=== PATIENT | female | born 1990 | race Caucasian/White ===

== ENCOUNTER 2016-05-22 11:45 | Inpatient (IN) | payer OTHER ==
--- NOTE | 2016-05-22 12:40 | HP ---
Past Medical History - Admission Chief Complaint: labor History of Present Illness: 26 yo @ 39 2/7 wks by LMP consistent with first trimester ultrasound, EDC complicated by: 1. Transfer of care at 11 wks Patient reports contractions began at 11 PM, they continued overnight and increased in intensity and frequency at approximately 10:30 AM. She denies leakage of fluid or vaginal bleeding She reports movement. History Source: Patient - Past Medical History Cardiovascular: No: HTN Pulmonary: No: Asthma ...: 1 ...Para: 0 ...EDC by Dates: 12/02/16 Heme/Onc: No: Anemia - Past Surgical History Hx Myomectomy: No Hx Transabdominal Cerclage: No Additional Surgical History: Adenoids Home Medications - Allergies Allergies/Adverse Reactions: Allergies Allergy/AdvReac Type Severity Reaction Status Date / Time No Known Allergies Allergy Verified 05/22/16 12:36 Family Disease History - Family Disease History Family History: Denies Review of Systems - Review of Systems Constitutional: reports: No Symptoms Neck: reports: No Symptoms Cardiovascular: reports: No Symptoms Respiratory: reports: No Symptoms Gastrointestinal: reports: No Symptoms Genitourinary: reports: No Symptoms Neurological: reports: No Symptoms Psychiatric: reports: No Symptoms Physical Exam - Maternity Constitutional: Yes: Well Nourished, No Distress, Calm Cardiovascular: Yes: Regular Rate and Rhythm Lungs: Clear to auscultation - Abdominal Exam/OB Number of Fetuses: Single Presentation: Vertex Contractions: Yes Regularity: Regular Intensity: Mod/Strong Heart Rate (range): 155 Category: I - Vaginal Exam/OB Vaginal Bleediing: No Speculum Exam: No Amniotic Membrane Status: Intact - Labs Lab Results: PNL: O positive, HBS Ag negative, RPR NR, Quantiferon negative, Hg Patrizia AA; Rubella Immune; Varicella Immune; Lead negative; CF negative; GBS negative unable to print labs or records Hemorrhage Risk Assessment - Risk Factors Medium Risk Factors: Yes: None High Risk Factors: Yes: None Risk Score: 1 Risk Level: Medium Risk Assessment/Plan 26 yo @ 39 wks, active labor 1. Admit to L&D 2. Routine labs and HIV collected and sent 3. GBS negative 4. Desires IV medication for pain control 5. Continue expectant management, anticipate vaginal delivery
[2016-05-22] MEDS ORDERED: PROMETHAZINE HCL 25 MG/1 ML VIAL IVPUSH ONE (12:44)
[2016-05-22] MEDS ORDERED: BUTORPHANOL TARTRATE 1 MG/ML VIAL IVPUSH ONE (12:44)
[2016-05-22 12:48] LABS: BASOPHIL 0.2 % (0-2.0); EOSINOPHIL 0.3 % (0-4.5); MCH 32.1 pg (25.7-33.7); MEAN CELL VOLUME 91.7 fl (80-96); MEAN PLT VOLUME 7.5 fl (7.5-11.1); NEUTROPHILS 83.4 % (42.8-82.8); PLATELET COUNT 198 K/MM3 (134-434); RDW 15.3 % (11.6-15.6); WHITE BLOOD COUNT 10.8 K/mm3 (4.0-10.0)
[2016-05-22 12:56] VITALS: BMI 32.5
[2016-05-22 13:04] LABS: INR 0.92 (0.82-1.09); PROTHROMBIN TIME (PATIENT) 10.1 SEC (9.98-11.88)
[2016-05-22 13:06] LABS: ACTIVATED PTT 27.4 SECONDS (26.9-34.4)
[2016-05-22 13:09] LABS: CALCIUM 8.2 mg/dL (8.5-10.1); CREATININE 0.7 mg/dL (0.55-1.02)
[2016-05-22] MEDS ORDERED: BENZOCAINE 20% 57 GM BOTTLE TP PRN (15:23)
[2016-05-22] MEDS ORDERED: METHYLERGONOVINE MALEATE 0.2 MG/1 ML AMP IM PRN (15:23)
[2016-05-22] MEDS ORDERED: METHYLERGONOVINE MALEATE 0.2 MG/1 ML AMP IM ONE (15:23)
[2016-05-22] MEDS ORDERED: BISACODYL 10 MG SUPP.RECT RC PRN (15:23)
[2016-05-22] MEDS ORDERED: BENZOCAINE 28 GM HEMORRHOIDAL OINTMENT TP PRN (15:23)
[2016-05-22] MEDS ORDERED: oxyCODONE HCL 5 MG TABLET PO PRN (15:23)
[2016-05-22] MEDS ORDERED: WITCH HAZEL 50% (TUCKS) 40 PAD/JAR PAD TP PRN (15:23)
--- NOTE | 2016-05-22 15:28 | PN ---
Delivery - Delivery Vaginal Delivery: No Problems Type of Anesthesia: Local Episiotomy/Laceration: Midline, 1st degree EBL (cc): 600 (mild uterine atony) Delivery, Single - Stages of Labor Date 1st Stage Initiatied: 05/22/16 Time 1st Stage Initiated: 10:30 Time 2nd Stage Initiated: 13:50 Time of Delivery: 14:54 Time Placenta Delivered: 14:57 Placenta: Yes: Spontaneous - Condition of Infant Gender: Female Position: Left, OA - 1 Minute Total Score: 9 5 Minutes Total Score: 10 - [place] Feeding Plan Initial Plan: Exclusive throughout hospitalization Remarks - Remarks Remarks: Patient progressed to fully dilated and at 1350 via delivered a viable female infant in LEODAN position, APGARs 9,10. Weight and length unknown at this time. Head delivered spontaneously followed by shoulders and body without difficulty. Infant with spontaneous cry and placed on mother's abdomen. Nose and mouth was bulb suctioned. Cord was clamped and cut. Perineum and vagina examined, a first degree perineal and R paraurethral laceration was noted and repaired in the usual fashion. Placenta was delivered spontaneously and intact. 20 units of pitocin in 1 L IVF was given. Uterine atony was noted, resolved s/p bimanual massage and IM methergine All counts correct x 2. Mother and stable in LDR. EBL 600cc.
[2016-05-22] MEDS ORDERED: D5W-LR W/ 20 UNITS OXYTOCIN 1,000 ML IV SCH (15:30)
[2016-05-22] MEDS ORDERED: TUBERCULIN PPD 5 TU/0.1ML SYRINGE (IN PATIENT USE ONLY) ID ONE (16:00)
[2016-05-22] MEDS: ACETAMINOPHEN 325 MG TABLET (FP) PO PRN (19:54)
[2016-05-22] MEDS: IBUPROFEN 600 MG TABLET (FP) PO PRN (19:56)
[2016-05-23] MEDS: ACETAMINOPHEN 325 MG TABLET (FP) PO PRN ×3 (04:36→20:52)
[2016-05-23] MEDS: IBUPROFEN 600 MG TABLET (FP) PO PRN ×3 (04:39→20:51)
[2016-05-23 07:48] LABS: HIV 1 & 2 AB NEGATIVE; HIV 1 AGp24 NEGATIVE
[2016-05-23 07:53] LABS: BASOPHIL 0.3 % (0-2.0); EOSINOPHIL 0.5 % (0-4.5); MCH 31.9 pg (25.7-33.7); MCHC 34.5 g/dl (32.0-36.0); MEAN CELL VOLUME 92.3 fl (80-96); MEAN PLT VOLUME 7.4 fl (7.5-11.1); NEUTROPHILS 79.4 % (42.8-82.8); PLATELET COUNT 182 K/MM3 (134-434); RDW 15.6 % (11.6-15.6); WHITE BLOOD COUNT 11.7 K/mm3 (4.0-10.0)
[2016-05-23 08:39] LABS: HIV 1 & 2 AB NEGATIVE; HIV 1 AGp24 NEGATIVE
[2016-05-23] MEDS ORDERED: DIPHTH,PERTUSS(ACELL),TET 0.5 ML DISP.SYRIN IM ONE (10:00)
[2016-05-23] MEDS: PRENATAL VITAMINS W/ FOLIC ACID TABLET (FP) PO SCH (10:05)
[2016-05-23] MEDS ORDERED: DOCUSATE SODIUM 100 MG CAPSULE (FP) PO PRN (10:25)
--- NOTE | 2016-05-23 10:25 | PN ---
Post Progress Note - Subjective Subjective: Patient without acute complaints. Reports tolerating oral intake without nausea or vomiting. Ambulating without dizziness. Denies fevers or chills. Pain well controlled with oral pain medication. without difficulty. Passing flatus. Post Day: 1 Type of Delivery: Vital Signs: Vital Signs Temperature 98.5 F 05/23/16 08:56 Pulse Rate 96 H 05/23/16 08:56 Respiratory Rate 20 05/23/16 08:56 Blood Pressure 110/60 05/23/16 08:56 O2 Sat by Pulse Oximetry (%) Breast Exam: Yes: Soft. No: Cracked Nipples Uterus: Yes: Fundus Firm, Fundus below umbilicus Abdomen/GI: Yes: Abdomen soft, Passing flatus, Tolerating PO. No: Abdominal Distention, Tender Lochia: Yes: Serosa Lochia, amount: Small Extremities: Yes: Calves non-tender. No: Edema Perineum: Yes: Laceration Activity: Ambulating - Labs Labs: CBC WBC 11.7 K/mm3 (4.0-10.0) H 05/23/16 06:15 RBC 2.95 M/mm3 (3.60-5.2) L 05/23/16 06:15 Hgb 9.4 GM/dL (10.7-15.3) L D 05/23/16 06:15 Hct 27.2 % (32.4-45.2) L D 05/23/16 06:15 MCV 92.3 fl (80-96) 05/23/16 06:15 MCHC 34.5 g/dl (32.0-36.0) 05/23/16 06:15 RDW 15.6 % (11.6-15.6) 05/23/16 06:15 Plt Count 182 K/MM3 (134-434) 05/23/16 06:15 MPV 7.4 fl (7.5-11.1) L 05/23/16 06:15 Neutrophils % 79.4 % (42.8-82.8) 05/23/16 06:15 Lymphocytes % 13.2 % (8-40) 05/23/16 06:15 Monocytes % 6.6 % (3.8-10.2) 05/23/16 06:15 Eosinophils % 0.5 % (0-4.5) 05/23/16 06:15 Basophils % 0.3 % (0-2.0) 05/23/16 06:15 Assessment/Plan 26 yo PPD # 1 s/p , afebrile, vital signs stable, doing well 1. Continue routine care. 2. AM CBC with mild anemia. will start ferrous sulfate and colace PRN 3. Rh positive status, no rhogam indicated. 4. Continue oral pain medication 5. Anticipate discharge home day #2
[2016-05-23] MEDS: FERROUS SO4 325 MG TABLET (FP) PO SCH (21:00)
[2016-05-23] MEDS ORDERED: SENNOSIDES/DOCUSATE COMBO (SENNA PLUS) TABLET (UD) PO PRN (22:00)
[2016-05-24] MEDS: IBUPROFEN 600 MG TABLET (FP) PO PRN (06:15)
[2016-05-24] MEDS: ACETAMINOPHEN 325 MG TABLET (FP) PO PRN (06:17)
[2016-05-24] MEDS: FERROUS SO4 325 MG TABLET (FP) PO SCH (11:01)
[2016-05-24] MEDS: PRENATAL VITAMINS W/ FOLIC ACID TABLET (FP) PO SCH (11:01)
[2016-05-24 12:11] VITALS: BP 119/68; PULSE 88; TEMP 98
--- NOTE | 2016-05-24 12:57 | DS ---
Physical Exam-CARDIOVASCULAR SONOGRAPHER Vital Signs: Vital Signs Temperature 98 F 05/24/16 10:00 Pulse Rate 88 05/24/16 10:00 Respiratory Rate 20 05/24/16 10:00 Blood Pressure 119/68 05/24/16 10:00 O2 Sat by Pulse Oximetry (%) Constitutional: Yes: Well Nourished, No Distress, Calm Eyes: Yes: WNL, Conjunctiva Clear, EOM Intact HENT: Yes: WNL, Atraumatic, Normocephalic Neck: Yes: WNL, Supple, Trachea Midline Cardiovascular: Yes: WNL, Regular Rate and Rhythm Respiratory: Yes: WNL, Regular, CTA Bilaterally Gastrointestinal: Yes: WNL ...Rectal Exam: Yes: WNL Renal/: Yes: WNL ....Post : Yes: Uterus firm, Uterus non-tender, Slight lochia rubra Breast(s): Yes: WNL Musculoskeletal: Yes: WNL Extremities: Yes: WNL Integumentary: Yes: WNL Neurological: Yes: WNL, Alert, Oriented ...Motor Strength: WNL Psychiatric: Yes: WNL, Alert, Oriented Labs: CBC, BMP 05/23/16 06:15 05/22/16 12:20 Delivery - Delivery Vaginal Delivery: No Problems, Spontaneous Type of Anesthesia: Local Episiotomy/Laceration: Midline, 1st degree EBL (cc): 600 Delivery, Single - Stages of Labor Date 1st Stage Initiatied: 05/22/16 Time 1st Stage Initiated: 10:30 Date 2nd Stage Initiated: 05/22/16 Time 2nd Stage Initiated: 13:50 Date of Delivery: 05/22/16 Time of Delivery: 14:54 Time Placenta Delivered: 14:57 Placenta: Yes: Spontaneous - Condition of Home Health Care Coordinator/Nut Grinder Present: No Gender: Female Position: Left, OA Total Hours ROM (Hrs/Mins): 1h45m - 1 Minute Total Score: 10 5 Minutes Total Score: 9 - Feeding Plan Initial Plan: Exclusive throughout hospitalization Discharge Summary Reason For Visit: LABOR Procedures: Principal: Condition: Good - Instructions Diet, Activity, Other Instructions: regular diet. follow up office 4 weeks Referrals: Nic Myers MD [Staff Physician] - Disposition: HOME - Home Medications Comprehensive Discharge Medication List: Ambulatory Orders Vitamins (Sjr) - 1 tab PO DAILY 05/22/16 Ibuprofen [Motrin -] 600 mg PO TID #90 tablet 05/24/16 Vitamins (Sjr) - 1 tab PO DAILY #90 tablet 05/24/16
--- NOTE | 2016-05-24 13:04 | DS ---
Physical Exam-MEDICAL MANAGER Vital Signs: Vital Signs Temperature 98 F 05/24/16 10:00 Pulse Rate 88 05/24/16 10:00 Respiratory Rate 20 05/24/16 10:00 Blood Pressure 119/68 05/24/16 10:00 O2 Sat by Pulse Oximetry (%) Constitutional: Yes: Well Nourished, No Distress, Calm Eyes: Yes: WNL, Conjunctiva Clear, EOM Intact HENT: Yes: WNL, Atraumatic, Normocephalic Neck: Yes: WNL, Supple, Trachea Midline Cardiovascular: Yes: WNL, Regular Rate and Rhythm Respiratory: Yes: WNL, Regular, CTA Bilaterally Gastrointestinal: Yes: WNL ...Rectal Exam: Yes: WNL Renal/: Yes: WNL ....Post : Yes: Uterus firm, Uterus non-tender, Slight lochia rubra Breast(s): Yes: WNL Musculoskeletal: Yes: WNL Extremities: Yes: WNL Edema: No Integumentary: Yes: WNL Neurological: Yes: WNL, Alert, Oriented ...Motor Strength: WNL Psychiatric: Yes: WNL, Alert, Oriented Labs: CBC, BMP 05/23/16 06:15 05/22/16 12:20 Delivery - Delivery Vaginal Delivery: No Problems, Spontaneous Type of Anesthesia: Local Episiotomy/Laceration: Midline, 1st degree EBL (cc): 600 Delivery, Single - Stages of Labor Date 1st Stage Initiatied: 05/22/16 Time 1st Stage Initiated: 10:30 Date 2nd Stage Initiated: 05/22/16 Time 2nd Stage Initiated: 13:50 Date of Delivery: 05/22/16 Time of Delivery: 14:54 Time Placenta Delivered: 14:57 Placenta: Yes: Spontaneous - Condition of Procurement Services Manager/Head Of Integrated Media Present: No Infant Gender: Female Position: Left, OA Total Hours ROM (Hrs/Mins): 1h45m - 1 Minute Total Score: 10 5 Minutes Total Score: 9 - [place] Feeding Plan Initial Plan: Exclusive throughout hospitalization Discharge Summary Reason For Visit: LABOR Procedures: Principal: Condition: Good - Instructions Diet, Activity, Other Instructions: regular diet. follow up office 4 weeks Disposition: HOME - Home Medications Comprehensive Discharge Medication List: Ambulatory Orders Vitamins (Sjr) - 1 tab PO DAILY 05/22/16 Ibuprofen [Motrin -] 600 mg PO TID #90 tablet 05/24/16 Vitamins (Sjr) - 1 tab PO DAILY #90 tablet 05/24/16
== END 2016-05-24 13:10 | disposition home or self-care (01) | DRG 775 ==
LOC: JLDR 11:45 → J3W 16:45
PROVIDERS: ADMIT Obstetrics & Gynecology; ATTEND Obstetrics & Gynecology
PROC: 10E0XZZ Delivery of Products of Conception, External Approach (ICD-10-PCS; principal; 2016-05-22)
PROC: 0HQ9XZZ Repair Perineum Skin, External Approach (ICD-10-PCS; 2016-05-22)
DX: O70.0 First degree perineal laceration during delivery (principal); O62.2 Other uterine inertia; O99.02 Anemia complicating childbirth; Z3A.39 39 weeks gestation of pregnancy; Z37.0 Single live birth
CPT/HCPCS: 36415; 59409; 80048; 85025; 85610; 85730; 86593; 86850; 86900; 86901; 87389; 90715

== ENCOUNTER 2018-04-15 18:35 | Inpatient (IN) | payer OTHER ==
[2018-04-15] MEDS ORDERED: TUBERCULIN PPD 5 TU/0.1ML SYRINGE (IN PATIENT USE ONLY) ID ONE ×2 (19:38→20:00)
[2018-04-15 19:52] LABS: BASO % 0.3 % (0-2.0); EOS % 0.3 % (0-4.5); HEMATOCRIT 32.5 % (32.4-45.2); HEMOGLOBIN 11.5 GM/dL (10.7-15.3); LYMPH % 9.8 % (8-40); MCHC 35.4 g/dl (32.0-36.0); MEAN CELL VOLUME 90.4 fl (80-96); MEAN PLT VOLUME 7.3 fl (7.5-11.1); MONO % 4.5 % (3.8-10.2); NEUT % 85.1 % (42.8-82.8); PLATELET COUNT 228 K/MM3 (134-434); RDW 16.4 % (11.6-15.6); WHITE BLOOD COUNT 10.9 K/mm3 (4.0-10.0)
--- NOTE | 2018-04-15 19:58 | HP ---
Past Medical History - Primary Care Physician PCP:: Nic Myers - Admission Chief Complaint: 39 weeks, labor History of Present Illness: 28 yo f , 39 weeks, in labor , cx 7 cm 80 vx -2 mr , clear fhr cat i , regular contraction .admit ,for vaginal delivery History Source: Patient Limitations to Obtaining History: No Limitations - Past Medical History ...: 2 ...Para: 1 ...Term: 1 - Past Surgical History Hx Myomectomy: No Hx Transabdominal Cerclage: No - Smoking History Smoking history: Never smoked Have you smoked in the past 12 months: No - Alcohol/Substance Use Hx Alcohol Use: No - Social History History of Recent Travel: No Home Medications - Allergies Allergies/Adverse Reactions: Allergies Allergy/AdvReac Type Severity Reaction Status Date / Time No Known Allergies Allergy Verified 05/22/16 12:36 - Home Medications Home Medications: Ambulatory Orders Vitamins (Sjr) - 1 tab PO DAILY 05/22/16 Review of Systems - Review of Systems Constitutional: reports: No Symptoms Eyes: reports: No Symptoms HENT: reports: No Symptoms Neck: reports: No Symptoms Respiratory: reports: No Symptoms Gastrointestinal: reports: No Symptoms Genitourinary: reports: No Symptoms Breasts: reports: No Symptoms Reported Musculoskeletal: reports: No Symptoms Integumentary: reports: No Symptoms Neurological: reports: No Symptoms Endocrine: reports: No Symptoms Hematology/Lymphatic: reports: No Symptoms Psychiatric: reports: No Symptoms Physical Exam - Maternity Constitutional: Yes: Well Nourished, No Distress, Calm Eyes: Yes: WNL, Conjunctiva Clear, EOM Intact HENT: Yes: WNL, Atraumatic, Normocephalic Neck: Yes: WNL, Supple, Trachea Midline Cardiovascular: Yes: WNL, Regular Rate and Rhythm Breast(s): Yes: WNL - Abdominal Exam/OB Fundal Height: 40 Number of Fetuses: Single Presentation: Vertex Contractions: Yes Intensity: Mod/Strong Monitor Mode: External Heart Rate Location: [facility] Category: I Accelerations: Uniform Decelerations: None - Vaginal Exam/OB Vaginal Bleediing: Bloody Show Speculum Exam: No Dilatation (cm): cx 6 Effacement (%): 80 Amniotic Membrane Status: Ruptured Nitrazine Test: Positive Amniotic Fluid: Yes: Clear Presentation: Vertex/Position Station: -2 - Physical Exam Musculoskeletal: Yes: WNL Edema: LLE: Trace, RLE: Trace Deep Tendon Reflex Grade: Normal +2 ...Motor Strength: WNL Psychiatric: Yes: WNL Hemorrhage Risk Assessment - Risk Factors Risk Score: 0 Risk Level: Low Risk Problem List - Problems (1) with 38 completed weeks gestation Code(s): Z3A.38 - 38 WEEKS GESTATION OF (2) Labor established Code(s): UQD9574 - (3) Labor established Code(s): PHG0325 - Assessment/Plan admit for vaginal delivery m
[2018-04-15 20:14] LABS: ANION GAP 10 MMOL/L (8-16); BLOOD UREA NITROGEN 11 mg/dL (7-18); CALCIUM 8.1 mg/dL (8.5-10.1); CHLORIDE 107 mmol/L (98-107); CO2 23 mmol/L (21-32); CREATININE 0.7 mg/dL (0.55-1.3); GLUCOSE,RANDOM 104 mg/dL (74-106); INR 0.86 (0.83-1.09); POTASSIUM 3.6 mmol/L (3.5-5.1); PROTHROMBIN TIME (PATIENT) 10.1 SEC (9.7-13.0); SODIUM 140 mmol/L (136-145)
[2018-04-15] MEDS: OXYTOCIN 20 UNITS in 0.9% NS 20 UNIT/1,000 ML INFUS.BAG IV SCH (20:14)
[2018-04-15] MEDS ORDERED: OXYTOCIN 20 UNITS in 0.9% NS 20 UNIT/1,000 ML INFUS.BAG IV ONE (21:01)
[2018-04-15] MEDS ORDERED: LIDOCAINE HCL 1% PRESERVATIVE FREE - 30ML VIAL ONE (21:07)
[2018-04-15] MEDS ORDERED: BENZOCAINE 28 GM HEMORRHOIDAL OINTMENT TP PRN (21:29)
[2018-04-15] MEDS ORDERED: WITCH HAZEL 50% (TUCKS) 40 PAD/JAR PAD TP PRN (21:29)
[2018-04-15] MEDS ORDERED: BISACODYL 10 MG SUPP.RECT RC PRN (21:29)
[2018-04-15] MEDS ORDERED: METHYLERGONOVINE MALEATE 0.2 MG/1 ML AMP IM PRN (21:29)
[2018-04-15] MEDS ORDERED: IBUPROFEN 600 MG TABLET (FP) PO PRN (21:29)
[2018-04-15] MEDS ORDERED: ACETAMINOPHEN 325 MG TABLET (FP) PO PRN (21:29)
[2018-04-15] MEDS ORDERED: BENZOCAINE 20% 57 GM BOTTLE TP PRN (21:29)
[2018-04-15] MEDS ORDERED: D5W-LR W/ 20 UNITS OXYTOCIN 1,000 ML IV SCH (21:30)
[2018-04-15 21:34] VITALS: BMI 28.1
[2018-04-15] MEDS ORDERED: DEXTROSE 5%-LACTATED RINGERS 1,000 ML IV SCH (22:30)
[2018-04-15] MEDS: FERROUS SO4 325 MG TABLET (FP) PO SCH (23:41)
[2018-04-16] MEDS: OXYTOCIN 20 UNITS in 0.9% NS 20 UNIT/1,000 ML INFUS.BAG IV SCH (08:00)
--- NOTE | 2018-04-16 08:15 | PN ---
Progress Note (short form) - Note Progress Note: ppd 1 ,doing well, no c/o. no excess vaginal bleeding CBC, BMP 04/15/18 19:20 Last Vital Signs Temp Pulse Resp BP Pulse Ox 98.3 F 88 20 117/53 L 04/16/18 05:09 04/16/18 05:09 04/16/18 05:09 04/16/18 05:09 abdomen soft, no cva uterus firm, non tender perinium clean no excess vaginal bleeding plan ambulate , cbc Problem List - Problems (1) with 38 completed weeks gestation Code(s): Z3A.38 - 38 WEEKS GESTATION OF (2) Labor established Code(s): ARQ4802 - (3) Labor established Code(s): EDP7532 -
[2018-04-16 08:46] LABS: BASO % 0.2 % (0-2.0); EOS % 0.5 % (0-4.5); HEMATOCRIT 27.4 % (32.4-45.2); HEMOGLOBIN 9.5 GM/dL (10.7-15.3); LYMPH % 13.5 % (8-40); MCH 31.3 pg (25.7-33.7); MCHC 34.7 g/dl (32.0-36.0); MEAN CELL VOLUME 90.3 fl (80-96); MEAN PLT VOLUME 7.6 fl (7.5-11.1); MONO % 6.8 % (3.8-10.2); PLATELET COUNT 168 K/MM3 (134-434); RBC 3.03 M/mm3 (3.60-5.2); RDW 16.1 % (11.6-15.6); WHITE BLOOD COUNT 9.1 K/mm3 (4.0-10.0)
[2018-04-16] MEDS: FERROUS SO4 325 MG TABLET (FP) PO SCH ×2 (09:01→17:09)
[2018-04-16] MEDS: PRENATAL VITAMINS W/ FOLIC ACID TABLET (FP) PO SCH (09:01)
--- NOTE | 2018-04-16 11:19 | DS ---
Physical Exam-INSIGHTS STRATEGIST Vital Signs: Vital Signs Temperature 98.3 F 04/16/18 08:10 Pulse Rate 92 H 04/16/18 08:10 Respiratory Rate 18 04/16/18 08:10 Blood Pressure 121/58 L 04/16/18 08:10 O2 Sat by Pulse Oximetry (%) Constitutional: Yes: Well Nourished, No Distress, Calm Eyes: Yes: WNL, Conjunctiva Clear, EOM Intact HENT: Yes: WNL, Atraumatic, Normocephalic Neck: Yes: WNL, Supple, Trachea Midline Cardiovascular: Yes: WNL, Regular Rate and Rhythm Respiratory: Yes: WNL, Regular, CTA Bilaterally Gastrointestinal: Yes: WNL ...Rectal Exam: Yes: WNL Renal/: Yes: WNL Vaginal Exam: Yes: Bleeding ....Post : Yes: Uterus firm, Uterus non-tender, Slight lochia rubra Breast(s): Yes: WNL Musculoskeletal: Yes: WNL Extremities: Yes: WNL Edema: No Integumentary: Yes: WNL Neurological: Yes: WNL, Alert, Oriented ...Motor Strength: WNL Psychiatric: Yes: WNL, Alert, Oriented Labs: CBC, BMP 04/16/18 07:30 04/15/18 19:20 Delivery - Delivery Vaginal Delivery: Spontaneous (no complication) Type of Anesthesia: None Episiotomy/Laceration: Midline, 1st degree EBL (cc): 300 Delivery, Single - Stages of Labor Date 1st Stage Initiatied: 04/15/18 Time 1st Stage Initiated: 16:00 Date 2nd Stage Initiated: 04/15/18 Time 2nd Stage Initiated: 20:45 Date of Delivery: 04/15/18 Time of Delivery: 21:03 Time Placenta Delivered: 21:14 Placenta: Yes: Spontaneous - Condition of Infant Gender: Female Weight: 7 lb 4 oz Position: Left, OA Total Hours ROM (Hrs/Mins): 1 hour 59 minutes - 1 Minute Total Score: 9 5 Minutes Total Score: 9 - [place] Feeding Plan Initial Plan: Elected not to breastfeed exclusively throughout hospitalization Discharge Summary Reason For Visit: LABOR Current Active Problems Labor established (Acute) Labor established (Acute) with 38 completed weeks gestation (Acute) Procedures: Principal: Hospital Course: no complication - Instructions Diet, Activity, Other Instructions: regular diet, if pain, heavy vaginal bleeding, fever .call MD - Home Medications Comprehensive Discharge Medication List: Ambulatory Orders Vitamins (Sjr) - 1 tab PO DAILY 05/22/16
[2018-04-16] MEDS ORDERED: SENNOSIDES/DOCUSATE COMBO (SENNA PLUS) TABLET (UD) PO PRN (22:00)
--- NOTE | 2018-04-17 07:18 | PN ---
Post Progress Note - Subjective Subjective: No complains Post Day: 2 Type of Delivery: Vital Signs: Vital Signs Temperature 98.3 F 04/16/18 21:22 Pulse Rate 91 H 04/16/18 21:22 Respiratory Rate 20 04/16/18 21:22 Blood Pressure 115/59 L 04/16/18 21:22 O2 Sat by Pulse Oximetry (%) Breast Exam: Yes: Soft Uterus: Yes: Fundus Firm Abdomen/GI: Yes: Abdomen soft, Passing flatus Lochia: Yes: Rubra Lochia, amount: Small Extremities: Yes: Calves non-tender Perineum: Yes: Intact Activity: Ambulating - Labs Labs: CBC WBC 9.1 K/mm3 (4.0-10.0) 04/16/18 07:30 RBC 3.03 M/mm3 (3.60-5.2) L 04/16/18 07:30 Hgb 9.5 GM/dL (10.7-15.3) L 04/16/18 07:30 Hct 27.4 % (32.4-45.2) L D 04/16/18 07:30 MCV 90.3 fl (80-96) 04/16/18 07:30 MCH 31.3 pg (25.7-33.7) 04/16/18 07:30 MCHC 34.7 g/dl (32.0-36.0) 04/16/18 07:30 RDW 16.1 % (11.6-15.6) H 04/16/18 07:30 Plt Count 168 K/MM3 (134-434) D 04/16/18 07:30 MPV 7.6 fl (7.5-11.1) 04/16/18 07:30 Absolute Neuts (auto) 7.1 K/mm3 (1.5-8.0) 04/16/18 07:30 Neutrophils % 79.0 % (42.8-82.8) 04/16/18 07:30 Lymphocytes % 13.5 % (8-40) D 04/16/18 07:30 Monocytes % 6.8 % (3.8-10.2) 04/16/18 07:30 Eosinophils % 0.5 % (0-4.5) 04/16/18 07:30 Basophils % 0.2 % (0-2.0) 04/16/18 07:30 Nucleated RBC % 0 % (0-0) 04/16/18 07:30 Assessment/Plan 28yo P2 s/p doing well VSS, Afebrile no signs of anemia D/C home NPV x 6weeks RTO 4-6weeks
[2018-04-17] MEDS: FERROUS SO4 325 MG TABLET (FP) PO SCH (09:00)
[2018-04-17] MEDS: PRENATAL VITAMINS W/ FOLIC ACID TABLET (FP) PO SCH (09:00)
[2018-04-17 09:37] VITALS: BP 113/67; PULSE 84; TEMP 98.2
== END 2018-04-17 12:10 | disposition home or self-care (01) | DRG 560 ==
LOC: JDEL 18:35 → JLDR 19:29 → J3W 23:02
PROVIDERS: ADMIT Obstetrics & Gynecology; ATTEND Obstetrics & Gynecology
PROC: 10E0XZZ Delivery of Products of Conception, External Approach (ICD-10-PCS; principal; 2018-04-15)
PROC: 0W8NXZZ Division of Female Perineum, External Approach (ICD-10-PCS; 2018-04-15)
PROC: 0HQ9XZZ Repair Perineum Skin, External Approach (ICD-10-PCS; 2018-04-15)
DX: O70.0 First degree perineal laceration during delivery (principal); Z3A.38 38 weeks gestation of pregnancy; Z37.0 Single live birth
CPT/HCPCS: 36415; 59409; 80048; 85025; 85610; 85730; 86593; 86850; 86900; 86901